=== PATIENT | male | born 1955 | race Caucasian/White ===

== ENCOUNTER 2024-09-24 07:56 | Day surgery (SDC) | payer MEDICAID, MEDICARE ==
[~2024-09-24 07:56] MED LIST: Dexamethasone 4 MG/ML SDV ONE; Glycopyrrolate 0.2 MG/ML 5 ML MDV ONE; Neostigmine Methylsulfate 10 MG/10 ML MDV ONE; Ondansetron 4 MG/2 ML SDV ONE; Propofol 200 MG/20 ML SDV ONE; Rocuronium 50 MG/5 ML Vial ONE; Succinylcholine 200 MG/10 ML MDV ONE; fentaNYL 250 MCG/5 ML SDV ONE
[2024-09-24 08:17] LABS: HEMATOCRIT 43.8 % (38.4-49.7); HEMOGLOBIN 14.8 g/dL (12.9-16.9); MEAN CORPUSCULAR HEMOGLOBIN 30.7 pg (31.6-35.5); MEAN CORPUSCULAR HGB CONC 33.8 g/dL (31.6-35.5); MEAN CORPUSCULAR VOLUME 90.9 fL (81.4-99.0); RED BLOOD CELL COUNT 4.82 M/uL (4.14-5.76); WHITE BLOOD CELL COUNT,WBC 6.1 K/uL (3.2-11.0)
[2024-09-24] MEDS: Lactated Ringers 1,000 ML IV SCH (08:43)
[2024-09-24 08:44] LABS: A/G RATIO 1.2 (1.2-2.2); ALANINE AMINOTRANSFERASE,ALT 40 U/L (12-78); ALBUMIN 3.9 g/dL (3.4-5.0); ALKALINE PHOSPHATASE 96 U/L (46-116); ANION GAP 10.1 mmol/L (5.0-14.0); ASPARTATE AMNIOTRANSFERASE,AST 25 U/L (15-37); BILIRUBIN TOTAL 0.9 mg/dL (0.2-1.0); BLOOD UREA NITROGEN,BUN 12 mg/dL (7-18); CARBON DIOXIDE,CO2 27 mmol/L (21-32); CHLORIDE,CL 104 mmol/L (100-108); CREATININE 0.9 mg/dL (0.8-1.3); EST CRCL DRUG DOSING (CG) 78.56 mL/min; ESTIMATED GFR 93 mL/min (>60); GLUCOSE RANDOM 104 mg/dL (74-106); POTASSIUM,K 4.3 mmol/L (3.6-5.2); PROTEIN TOTAL,TP 7.2 g/dL (6.4-8.2); SODIUM,NA 141 mmol/L (140-148)
[2024-09-24] MEDS: metroNIDAZOLE/Normal Saline 500 MG in Premix Bag 1 BAG IV ONE (08:57)
[2024-09-24] MEDS: ceFAZolin 2 GM in Premix Bag 1 BAG IV ONE (09:15)
[2024-09-24] MEDS ORDERED: fentaNYL 100 MCG/2 ML SDV ONE (09:26)
[2024-09-24] MEDS: Bupivacaine 0.5%/EPINEPHrine 1:200,000 50 ML MDV ONE (09:30)
[2024-09-24] MEDS ORDERED: Sugammadex Sodium 200 MG/2 ML VIAL IV ONE (10:20)
[2024-09-24] MEDS ORDERED: Labetalol 100 MG/20 ML MDV IV ONE (10:38)
[2024-09-24] MEDS: Labetalol 20 MG/4 ML Syringe IV ONE (10:45)
[2024-09-24] MEDS: Acetaminophen/HYDROcodone 325-5 MG Tab PO PRN (11:23)
== END 2024-09-24 13:01 | disposition home or self-care (01) ==
LOC: JP.SDS 07:56
PROVIDERS: ATTEND Surgery
DX: K40.20 Bilateral inguinal hernia, without obstruction or gangrene, not specified as recurrent (principal); Z87.891 Personal history of nicotine dependence
CPT/HCPCS: 36415; 49650; 80053; 85027; A9270; C1781; J0171; J0330; J0690; J1100; J1596; J1836; J1920; J2405; J2704; J2710; J2795; J3010; J3490; J7120